=== PATIENT | female | born 1985 | race Caucasian/White ===

== ENCOUNTER 2020-09-16 08:47 | Outpatient (REF) | payer BC, SELFPAY ==
[2020-09-16 11:43] LABS: Anion Gap 12 (12-20); Bilirubin Direct 0.4 mg/dL (0.0-0.5); Blood Urea Nitrogen 13 mg/dL (9-16); Calcium 9.5 mg/dL (8.4-10.2); Carbon Dioxide 28 mmol/L (22-29); Chloride 102 mmol/L (96-108); Estimated Glomerular Filt Rate > 60; Glucose Fasting 94 mg/dL (60-99); Potassium 4.4 mmol/l (3.3-5.1); Sodium 138 mmol/L (135-145)
[2020-09-16 12:08] LABS: TSH reflex Free T4 0.01 mIU/mL (0.32-4.0)
[2020-09-16 12:45] LABS: Free T4 (Free Thyroxine) 1.35 ng/dL (0.71-1.85)
== END 2020-09-16 08:48 | disposition home or self-care (01) ==
LOC: HO.HMGCLDS 08:47
PROVIDERS: PCP Nurse Practitioner Family; Visit Provider Nurse Practitioner Family
DX: Z00.00 Encounter for general adult medical examination without abnormal findings (principal); R17 Unspecified jaundice; R79.89 Other specified abnormal findings of blood chemistry
CPT/HCPCS: 80048; 82248; 84439; 84443

== ENCOUNTER 2020-09-18 10:13 | Outpatient (REF) | payer BC, SELFPAY ==
[2020-09-24 18:17] LABS: HPV mRNA E6/E7 rflx Not Detected (Not Detected)
== END 2020-09-18 10:14 | disposition home or self-care (01) ==
LOC: HO.LAB 10:13
PROVIDERS: Visit Provider Advanced Practice Midwife
DX: Z01.419 Encounter for gynecological examination (general) (routine) without abnormal findings (principal)
CPT/HCPCS: 87624; 87625; 88142

== ENCOUNTER 2020-09-24 12:09 | Outpatient (REF) | payer BC, SELFPAY ==
[2020-09-24 16:01] LABS: TSH reflex Free T4 < 0.01 mIU/mL (0.32-4.0)
[2020-09-24 17:35] LABS: Free T4 (Free Thyroxine) 1.24 ng/dL (0.71-1.85)
== END 2020-09-24 12:10 | disposition home or self-care (01) ==
LOC: HO.HMGCLDS 12:09
PROVIDERS: PCP Nurse Practitioner Family; Visit Provider Nurse Practitioner Family
DX: R79.89 Other specified abnormal findings of blood chemistry (principal)
CPT/HCPCS: 36415; 83520; 84439; 84443; 84481

== ENCOUNTER 2020-10-02 10:36 | Outpatient (REF) | payer BC, SELFPAY ==
--- NOTE | 2020-10-02 10:39 | US_ITS ---
EXAMINATION: US THYROID CLINICAL INFORMATION: Thyrotoxicosis. COMPARISON: None TECHNIQUE: Linear transducer natarajan-scale and color Doppler examination with attention to the region of the thyroid. FINDINGS: SIZE: Measurements of the thyroid lobes and nodules are given in sagittal, anteroposterior and transverse dimensions respectively. Right Thyroid Lobe: 5.6 x 1.5 x 1.6 cm, volume 7.0 mL. Parenchyma: The gland echotexture is heterogeneous. Thyroid vascularity is increased. Left Thyroid Lobe: 4.8 x 1.1 x 1.4 cm, volume 3.9 mL. Parenchyma: The gland echotexture is heterogeneous. Thyroid vascularity is increased. Isthmus: 0.3 cm in maximum AP dimension. RIGHT THYROID LOBE: There is 1 nodule seen. 1. Location: Superior/Lateral. Size: 0.7 x 0.6 x 0.6 cm. Nodule characteristics: Complex hypoechoic smooth margined without calcification and some peripheral internodular flow. ISTHMUS: No nodules. LEFT THYROID LOBE: There are 2 nodules seen. 1. Location: Superior/middle. Size: 0.5 x 0.3 x 0.4 cm. Nodule characteristics: Heterogeneous smooth margined without calcification but with internodular flow. 2. Location: Inferior. Size: 0.5 x 0.4 x 0.4 cm. Nodule characteristics: Heterogeneous smooth margin without calcification but with internodular flow. NODES: Right lymph node measuring 1.1 x 2.4 x 0.3 cm.. US/US thyroid IMPRESSION: Small bilateral subcentimeter thyroid nodules. No suspicious nodules or lymphadenopathy Consider routine follow-up to evaluate for stability. Various management parameters for solitary thyroid nodules are in the literature. According to the [place] [employer], recommendations for thyroid nodules are as follows: Benign: Purely solid nodules (no cystic component). Estimated risk of malignancy < 1%. Recommendation: No biopsy or ultrasound follow up required. Very low suspicion: Spongiform or partially cystic nodules without any of the sonographic features described in low, intermediate or high suspicions patterns. Estimated risk of malignancy < 3%. Recommendation: Consider FNA at > 2 cm. Observation without FNA is also a reasonable option. Recommend repeat ultrasound in 24 months for nodules measuring greater than 1 cm. Nodule measuring less than 1 cm do not require ultrasound follow up. Low suspicion: Isoechoic or hyperechoic solid nodule, or partially cystic nodule with eccentric solid areas, without microcalcification, irregular margin or extrathyroidal extension, or taller than wide shape. Estimated risk of malignancy 5-10%. Recommendation: FNA at > 1.5 cm. Recommend repeat ultrasound in 12-24 months for nodules measuring less than 1.5 cm. Intermediate suspicion: Hypoechoic solid nodule with smooth margins without microcalcification, extrathyroidal extension, or taller than wide shape. Estimated risk of malignancy 10-20%. Recommendation: FNA at > 1 cm. Recommend repeat ultrasound in 12-24 months for nodules measuring less than 1 cm. High suspicion: Solid hypoechoic nodule or solid hypoechoic component of a partially cystic nodule with one or more of the following features: irregular margins (infiltrative, microlobulated), microcalcifications, taller than wide shape, rim calcifications with small extrusive soft tissue component, evidence of extrathyroidal extension. Estimated risk of malignancy > 70-90%. Recommendation: FNA at > 1 cm. Recommend repeat ultrasound in 6-12 months for nodules measuring less than 1 cm. .
== END 2020-10-02 10:37 | disposition home or self-care (01) ==
LOC: HO.HMGCX 10:36
PROVIDERS: PCP Nurse Practitioner Family; Visit Provider Nurse Practitioner Family
DX: R79.89 Other specified abnormal findings of blood chemistry (principal); E05.90 Thyrotoxicosis, unspecified without thyrotoxic crisis or storm
CPT/HCPCS: 76536

== ENCOUNTER → 2020-11-12 07:32 | Outpatient (BNVA) | payer BC, SELFPAY | PROVIDERS: PCP Nurse Practitioner Family; Referring Provider Nurse Practitioner Family; Visit Provider Internal Medicine | DX: Z76.89 Persons encountering health services in other specified circumstances (principal) ==

== ENCOUNTER 2020-11-12 10:50 | Outpatient (REF) | payer BC, SELFPAY ==
[2020-11-12 14:06] LABS: MANUAL DIFF FLAG NO
[2020-11-12 14:16] LABS: Basophils Absolute Auto 0.1 X10*3/uL (0.0-0.2); Basophils Percent Auto 1.4 % (0-2); Eosinophils Absolute Auto 0.1 X10*3/uL (0.0-0.4); Eosinophils Percent Auto 1.4 % (0-4); Hematocrit 40.3 % (37-47); Hemoglobin 13.5 g/dl (12.0-16.0); Imm Gran Abs Auto 0.01 X10*3/uL (0.00-0.03); Imm Gran Pct Auto 0.2 % (0.0-0.4); Lymphocytes Absolute Auto 1.5 X10*3/uL (1.2-4.9); Lymphocytes Percent Auto 34.8 % (20-40); Mean Corpuscular HGB Conc 33.5 g/dl (31.0-35.0); Mean Corpuscular Hemoglobin 29.6 pg (27.0-33.0); Mean Corpuscular Volume 88.4 fL (80-98); Mean Platelet Volume 9.3 fL (9.4-12.3); Monocytes Absolute Auto 0.4 X10*3/uL (0.1-1.2); Monocytes Percent Auto 8.6 % (2-11); Neutrophils Absolute Auto 2.4 X10*3/uL (2.0-8.3); Neutrophils Percent Auto 53.6 % (45-73); Platelet Count 275 X10*3/uL (160-400); Red Blood Count 4.56 X10*6/uL (4.20-5.50); Red Cell Distribution Width 12.1 % (11.0-16.0); White Blood Count 4.4 X10*3/uL (4.8-10.8)
[2020-11-12 14:45] LABS: Alanine Aminotransferase 20 U/L (0-31); Albumin Level 4.2 g/dL (3.5-5.0); Alkaline Phosphatase 52 U/L (39-117); Aspartate Amino Transferase 17 U/L (5-31); Bilirubin Direct 0.4 mg/dL (0.0-0.5); Bilirubin Total 1.1 mg/dL (0.0-1.0); Calcium 8.6 mg/dL (8.4-10.2); Estimated Glomerular Filt Rate > 60; Total Protein 6.6 g/dL (6.5-8.0)
[2020-11-12 14:55] LABS: Free T4 (Free Thyroxine) 1.11 ng/dL (0.71-1.85); Thyroid Stimulating Hormone 0.03 uIU/mL (0.32-4.0); Vitamin D 25-OH Total 23.9 ng/mL (>30)
[2020-11-13 12:53] LABS: Triiodothyronine T3 Total 102 ng/dL (76-181)
[2020-11-13 17:57] LABS: Thyroglobulin Antibodies <1 IU/mL (< or = 1); Thyroid Peroxidase Antibodies 10 IU/mL (<9)
[2020-11-13 19:08] LABS: PTHI 56 pg/mL (14-64)
[2020-11-17 15:47] LABS: Thyroid Stimulating Immunoglob 360 % baseline (<140)
[2020-11-19 22:03] LABS: Thyrotropin Receptor Antibody 2.37 IU/L (<=2.00)
[2020-11-20 00:23] LABS: FT4 by Equilib. Dialysis 1.5 ng/dL (0.9-2.2)
== END 2020-11-12 10:51 | disposition home or self-care (01) ==
LOC: HO.HMGCLDS 10:50
PROVIDERS: PCP Nurse Practitioner Family; Visit Provider Internal Medicine
DX: E05.90 Thyrotoxicosis, unspecified without thyrotoxic crisis or storm (principal); E55.9 Vitamin D deficiency, unspecified; E04.2 Nontoxic multinodular goiter; R79.89 Other specified abnormal findings of blood chemistry
CPT/HCPCS: 36415; 80076; 82306; 82310; 82565; 83520; 83970; 84439; 84443; 84445; 84480; 85025; 86376; 86800

== ENCOUNTER → 2020-12-09 14:32 | Outpatient (BNVA) | payer BC, SELFPAY | PROVIDERS: PCP Nurse Practitioner Family; Visit Provider Advanced Practice Midwife ==

== ENCOUNTER 2020-12-10 14:32 | Outpatient (REF) | payer BC, SELFPAY ==
--- NOTE | 2020-12-10 14:42 | US_ITS ---
EXAMINATION: ULTRASOUND RIGHT LOWER QUADRANT CLINICAL INFORMATION: Right lower quadrant pain COMPARISON: None. TECHNIQUE: Grayscale ultrasound, color Doppler performed right lower quadrant.: Doppler exam used. FINDINGS: The appendix is not seen. Appendicitis cannot be excluded. No focal fluid collection. No inflammatory change. No lymphadenopathy in the right Lower quadrant. The right ovary is normal measuring 3.6 x 2.6 x 3.5 cm. US/US appendix IMPRESSION: The appendix is not identified. Appendicitis cannot be excluded. No focal inflammatory change.
--- NOTE | 2020-12-10 14:42 | US_ITS ---
EXAMINATION: ULTRASOUND PELVIC, COMPLETE CLINICAL INFORMATION: Right lower quadrant pain COMPARISON: None. TECHNIQUE: Transvaginal: Used to better visualize pelvic structures Transabdominal: Not adequate for visualization Spectral Doppler and color Doppler exam was utilized. LMP: 12/04/2020 FINDINGS: UTERUS: There are a few nonspecific small bright echogenic foci associated with the endometrial stripe but these do not demonstrate posterior acoustic shadowing. Endometrial stripe is nearly isoechoic. Endometrial thickness is 1 cm. No fluid collections in the endometrial cavity. Uterus measures 10.4 x 3.9 x 7.5 cm. There is nabothian cysts at the cervix. ADNEXA: Ovarian vascularity:Doppler demonstrates both arterial and venous vascular flow in the right and left ovary. No evidence of ovarian torsion. Right Ovary: Multiple small follicles. The right ovary measures 3.6 x 2.2 x 4 cm. Volume 16.7 mL. Left Ovary: Multiple small follicles. The left ovary measures 3.3 x 2.1 x 2.7 cm. Volume 9.9 mL Cul-de-sac: No Fluid US/US pelvic complete IMPRESSION: Normal ultrasound of pelvis.
--- NOTE | 2020-12-10 14:42 | US_ITS ---
EXAMINATION: ULTRASOUND PELVIC, COMPLETE CLINICAL INFORMATION: Right lower quadrant pain COMPARISON: None. TECHNIQUE: Transvaginal: Used to better visualize pelvic structures Transabdominal: Not adequate for visualization Spectral Doppler and color Doppler exam was utilized. LMP: 12/04/2020 FINDINGS: UTERUS: There are a few nonspecific small bright echogenic foci associated with the endometrial stripe but these do not demonstrate posterior acoustic shadowing. Endometrial stripe is nearly isoechoic. Endometrial thickness is 1 cm. No fluid collections in the endometrial cavity. Uterus measures 10.4 x 3.9 x 7.5 cm. There is nabothian cysts at the cervix. ADNEXA: Ovarian vascularity:Doppler demonstrates both arterial and venous vascular flow in the right and left ovary. No evidence of ovarian torsion. Right Ovary: Multiple small follicles. The right ovary measures 3.6 x 2.2 x 4 cm. Volume 16.7 mL. Left Ovary: Multiple small follicles. The left ovary measures 3.3 x 2.1 x 2.7 cm. Volume 9.9 mL Cul-de-sac: No Fluid US/US transvaginal IMPRESSION: Normal ultrasound of pelvis.
[2020-12-10 16:43] LABS: MANUAL DIFF FLAG NO
[2020-12-10 16:48] LABS: Basophils Absolute Auto 0.1 X10*3/uL (0.0-0.2); Eosinophils Absolute Auto 0.1 X10*3/uL (0.0-0.4); Eosinophils Percent Auto 1.6 % (0-4); Hematocrit 41.4 % (37-47); Hemoglobin 13.8 g/dl (12.0-16.0); Imm Gran Abs Auto 0.01 X10*3/uL (0.00-0.03); Imm Gran Pct Auto 0.2 % (0.0-0.4); Lymphocytes Absolute Auto 2.2 X10*3/uL (1.2-4.9); Mean Corpuscular HGB Conc 33.3 g/dl (31.0-35.0); Mean Corpuscular Hemoglobin 29.9 pg (27.0-33.0); Mean Corpuscular Volume 89.8 fL (80-98); Mean Platelet Volume 9.2 fL (9.4-12.3); Monocytes Absolute Auto 0.3 X10*3/uL (0.1-1.2); Monocytes Percent Auto 5.5 % (2-11); Neutrophils Absolute Auto 3.5 X10*3/uL (2.0-8.3); Neutrophils Percent Auto 56.7 % (45-73); Platelet Count 331 X10*3/uL (160-400); Red Blood Count 4.61 X10*6/uL (4.20-5.50); Red Cell Distribution Width 12.4 % (11.0-16.0); White Blood Count 6.1 X10*3/uL (4.8-10.8)
[2020-12-10 16:55] LABS: Albumin Level 4.4 g/dL (3.5-5.0)
[2020-12-10 17:11] LABS: HCG Quantitative < 2 mIU/mL
== END 2020-12-10 14:33 | disposition home or self-care (01) ==
LOC: HO.HMGCX 14:32
PROVIDERS: Internal Medicine; PCP Nurse Practitioner Family; Visit Provider Advanced Practice Midwife
DX: Z00.00 Encounter for general adult medical examination without abnormal findings (principal); R10.31 Right lower quadrant pain; R10.2 Pelvic and perineal pain; E55.9 Vitamin D deficiency, unspecified
CPT/HCPCS: 36415; 76705; 76830; 76856; 82040; 84702; 85025

== ENCOUNTER 2020-12-11 13:48 | Emergency (ER) | payer BC, SELFPAY ==
--- NOTE | 2020-12-11 14:12 | ED_ITS ---
HPI - Abdominal Pain General Chief Complaint: Abdominal Pain Stated Complaint: pelvic pain Time Seen by Provider: 12/11/20 14:04 Source: patient Mode of arrival: ambulatory Limitations: no limitations History of Present Illness HPI narrative: 35 y/o female with history of migraines, multi-nodular thyroid w/ reported hypo and hyperthyroidism presents to the ER with intermittent sharp RLQ pain for the last 3 days. She has been seen by her [employer] INSPECTOR and PCP this week. She has had a normal pelvic/ovarian U/S and an appendix U/S that could not identify the appendix but no local inflammatory changes were noted. LMP 12/04. Qunt HCG was <2. No vaginal discharge, no vaginal bleeding. No dyspareunia. She also denies urinary symptoms. MD elicited complaint: abdominal pain Pertinent past history: none Onset (ago): day(s) (3) Pain Consistency: intermittent and now resolved Location: RLQ Severity: severe Quality: sharp Radiation: none Migration to: no migration Exacerbating factors: nothing Relieving factors: nothing Associated symptoms: nausea Related Data Date of Last Menstrual Period: 12/04/20 Patient : No Home Medications Medication Instructions Recorded Confirmed cholecalciferol (vitamin D3) 50 50 mcg PO DAILY 12/10/20 12/10/20 mcg (2,000 unit) capsule Allergies Allergy/AdvReac Type Severity Reaction Status Date / Time No Known Allergies Allergy Unknown Verified 12/11/20 14:25 Review of Systems Review of Systems Constitutional: No Fever, No Chills ENT/Mouth: No sore throat Cardiovascular: No Chest Pain, No SOB Respiratory: No Cough, No Sputum Gastrointestinal: N+Nausea, No Vomiting, No Diarrhea, + abdominal Pain, No Hematochezia, No Melena Genitourinary: No Dysuria, No Urinary Frequency, No Hematuria Musculoskeletal: No joint pain, No Myalgias Skin: No Skin Lesions, No rash Neuro: No Weakness, No Numbness, No Dizziness, No Headache Psych: No Anxiety/Panic, No Depression Heme/Lymph: No Bruising, No Lymphadenopathy Endocrine: No Polyuria, No Polydipsia Physical Exam Vital Signs: Vital Signs: Last Vital Signs Temp 98.4 F 12/11/20 14: Pulse 89 12/11/20 14:22 Resp 16 12/11/20 14:22 BP 113/68 12/11/20 14:22 Pulse Ox 98 12/11/20 14:22 Body Mass Index 25.8 Appearance: Alert. Oriented X3. No acute distress. Eyes: Pupils equal, round and reactive to light. ENT: Pharynx normal. Neck: Normal inspection. Neck supple. CVS: Normal heart rate and rhythm. Pulses normal. Respiratory: No respiratory distress. Breath sounds normal. Abdomen: Soft with mild RLQ tenderness to deep palpation. No rebound or guarding. +BS x4 Skin: Skin warm and dry. Normal skin color. Normal skin turgor. No rashes. Extremities: No lower extremity edema. Neuro: Oriented X 3. No motor deficit. No sensory deficit. Course Course Course Narrative: 35 y/o female presenting with intermittent RLQ pain for the last 3 days. No pain at current and exam is unrevealing. Had recent negative pelvic U/S and appendix U/S yesterday. Will proceed with abd/pelvis CT scan and blood work for further evaluation. Reevaluation(s) Reevaluation #1: Lab workup and CT scan are unremarkable. She continues to be painfree in the ER. Etiology of her pain is unclear. Deferring pelvic exam per patient request (she had normal PAP in Oct per her report)- patient has no vaginal discharge and is , no STI risk. She is stable for discharge and has been counseled. MDM - Abdominal Pain Differential Diagnosis Differential diagnosis: Likely abdominal pain, acute appendicitis, constipation, diverticulitis, mesenteric ischemia, ovarian cyst and renal colic Lab Data Result diagrams: 12/11/20 14:32 12/11/20 14:32 Labs: Lab Results 12/11/20 12/11/20 12/11/20 Range/Units 14:32 14:32 14:32 WBC 6.5 (4.8-10.8) X10*3/uL RBC 4.48 (4.20-5.50) X10*6/uL Hgb 13.5 (12.0-16.0) g/dl Hct 39.4 (37-47) % MCV 87.9 (80-98) fL MCH 30.1 (27.0-33.0) pg MCHC 34.3 (31.0-35.0) g/dl RDW 12.1 (11.0-16.0) % Plt Count 298 (160-400) X10*3/uL MPV 8.6 L (9.4-12.3) fL Immature Gran % (Auto) 0.3 (0.0-0.4) % Neut % (Auto) 61.6 (45-73) % Lymph % (Auto) 30.6 (20-40) % [place] % (Auto) 5.1 (2-11) % Eos % (Auto) 1.2 (0-4) % Baso % (Auto) 1.2 (0-2) % Lymph # (Auto) 2.0 (1.2-4.9) X10*3/uL Sterling # (Auto) 0.3 (0.1-1.2) X10*3/uL Eos # (Auto) 0.1 (0.0-0.4) X10*3/uL Baso # (Auto) 0.1 (0.0-0.2) X10*3/uL Abs Immat Gran (auto) 0.02 (0.00-0.03) X10*3/uL Absolute Neuts (auto) 4.0 (2.0-8.3) X10*3/uL Absolute Nucleated RBC 0.000 (0.0-0.012) X10*3/uL Nucleated RBC % (auto) 0.0 (0.0-0.2) /100WBC Hold Blue Top SEE NOTE Sodium 138 (135-145) mmol/L Potassium 3.5 D (3.3-5.1) mmol/l Chloride 106 (96-108) mmol/L Carbon Dioxide 26 (22-29) mmol/L Anion Gap 10 L (12-20) BUN 12 (9-16) mg/dL Creatinine 0.89 (0.5-1.4) mg/dL Estim Creat Clear Calc 91.6 Estimated GFR > 60 Random Glucose 95 (60-115) mg/dL Calcium 9.0 (8.4-10.2) mg/dL Total Bilirubin 0.7 (0.0-1.0) mg/dL AST 17 (5-31) U/L ALT 23 (0-31) U/L Alkaline Phosphatase 51 (39-117) U/L Total Protein 6.6 (6.5-8.0) g/dL Albumin 4.2 (3.5-5.0) g/dL Lipase 43 (8-78) U/L Urine Color Urine Appearance Urine pH (5.0-8.0) Ur Specific [place] (1.005-1.025) Urine Protein (NEG-TRACE) MG/DL Urine Glucose (UA) (NEG) MG/DL Urine Ketones (NEG) MG/DL Urine Blood (NEG) Urine Nitrite (NEG) Ur Leukocyte Esterase (NEG) Urine Test (NEGATIVE) 12/11/20 Range/Units 14:32 WBC (4.8-10.8) X10*3/uL RBC (4.20-5.50) X10*6/uL Hgb (12.0-16.0) g/dl Hct (37-47) % MCV (80-98) fL MCH (27.0-33.0) pg MCHC (31.0-35.0) g/dl RDW (11.0-16.0) % Plt Count (160-400) X10*3/uL MPV (9.4-12.3) fL Immature Gran % (Auto) (0.0-0.4) % Neut % (Auto) (45-73) % Lymph % (Auto) (20-40) % Sterling % (Auto) (2-11) % Eos % (Auto) (0-4) % Baso % (Auto) (0-2) % Lymph # (Auto) (1.2-4.9) X10*3/uL Sterling # (Auto) (0.1-1.2) X10*3/uL Eos # (Auto) (0.0-0.4) X10*3/uL Baso # (Auto) (0.0-0.2) X10*3/uL Abs Immat Gran (auto) (0.00-0.03) X10*3/uL Absolute Neuts (auto) (2.0-8.3) X10*3/uL Absolute Nucleated RBC (0.0-0.012) X10*3/uL Nucleated RBC % (auto) (0.0-0.2) /100WBC Hold Blue Top Sodium (135-145) mmol/L Potassium (3.3-5.1) mmol/l Chloride (96-108) mmol/L Carbon Dioxide (22-29) mmol/L Anion Gap (12-20) BUN (9-16) mg/dL Creatinine (0.5-1.4) mg/dL Estim Creat Clear Calc Estimated GFR Random Glucose (60-115) mg/dL Calcium (8.4-10.2) mg/dL Total Bilirubin (0.0-1.0) mg/dL AST (5-31) U/L ALT (0-31) U/L Alkaline Phosphatase (39-117) U/L Total Protein (6.5-8.0) g/dL Albumin (3.5-5.0) g/dL Lipase (8-78) U/L Urine Color YELLOW Urine Appearance CLEAR Urine pH 5.5 (5.0-8.0) Ur Specific [place] >= 1.030 H (1.005-1.025) Urine Protein NEG (NEG-TRACE) MG/DL Urine Glucose (UA) NEG (NEG) MG/DL Urine Ketones NEG (NEG) MG/DL Urine Blood NEG (NEG) Urine Nitrite NEG (NEG) Ur Leukocyte Esterase NEG (NEG) Urine Test NEGATIVE (NEGATIVE) Critical Care Time Critical Care Time Critical Care Time: No Discharge Plan Discharge Clinical Impression: Abdominal pain Patient Disposition: Home, Self-Care Instructions: Abdominal Pain (ED) Additional Instructions: Your lab workup today was unremarkable. Your CT scan showed no abnormalities. The cause your your pain is unclear. Recommend keeping a food diary and monitoring when then pain occurs. Encourage you to follow up with your [employer] INSPECTOR and Primary Care Doctor. Prescriptions: No Action cholecalciferol (vitamin D3) 50 mcg (2,000 unit) capsule 50 mcg PO DAILY RF: 0 Stand Alone Forms: Work/School Release FOR[facility]LY [facility] Past Medical History Medical History Hyperthyroidism Hypothyroidism Migraine with aura Migraines Multinodular thyroid Vitamin D deficiency Surgical History Hx of cholecystectomy Date of Last Menstrual Period: 12/04/20 Family History Family History Father CVD (cardiovascular disease) Mother Diabetes mellitus Sister No problems noted. Sister No problems noted. Son No problems noted. Daughter No problems noted. Maternal Grandfather Thyroid disease Social History Social History Alcohol intake: current Alcohol intake frequency: holidays/special occasions only Smoking Status: Current every day smoker Advance Directives: No Advance Directives Information Provided: No Sexual orientation: Straight/Heterosexual Gender identity: female
--- NOTE | 2020-12-11 14:13 | CT_ITS ---
EXAMINATION: CT ABDOMEN AND PELVIS WITH CONTRAST CLINICAL INFORMATION: Right lower quadrant pain COMPARISON: Ultrasound pelvis 12/10/2020 TECHNIQUE: Multidetector volumetric images were obtained from the superior aspect of the liver through the pubic symphysis following administration 85 mL of Omnipaque 350 intravenous contrast. Sagittal and coronal reformatted images were obtained on the technologist's workstation. Oral contrast: No This CT examination was performed using dose optimization techniques as appropriate, variously including the following: *Automated exposure control *Adjustment of mA and/or kV according to patient size (this includes techniques or standardized protocols for targeted exams where dose is matched to indication/reason for exam; i.e. extremities or head) *Use of iterative reconstruction technique DLP: 558 mGy-cm FINDINGS: LUNG BASES: The visualized lung bases are unremarkable. LIVER, GALLBLADDER, AND BILIARY TREE: The liver is normal in size and smooth in contour. There is a solitary subcapsular low-attenuation nodule inferior lateral right lobe segment 6 measuring only 0.5 mm, likely a cyst. The remainder of the liver parenchyma is homogeneous. There is no intrahepatic biliary ductal dilatation. The gallbladder is not seen with certainty. No clips demonstrated renal fossa. Common hepatic duct and common bile duct are unremarkable. PANCREAS: Unremarkable. SPLEEN: Unremarkable. ADRENAL GLANDS: Unremarkable. KIDNEYS AND URETERS: The kidneys are normal in size, shape, and attenuation. No hydronephrosis, hydroureter, or calculi seen. No perinephric stranding. BLADDER: Unremarkable. GASTROINTESTINAL TRACT: There is no bowel obstruction or inflammatory changes in the bowel or mesentery. There is moderate stool throughout the colon no gaseous dilatation of bowel. The appendix is normal. There is no ascites or fluid collection. No pneumatosis or free air. ABDOMINAL WALL: No significant hernia is appreciated. LYMPH NODES: No lymphadenopathy. VASCULAR: Unremarkable. PELVIC VISCERA: No adnexal mass or pelvic ascites. OSSEOUS STRUCTURES: Unremarkable. CT/CT abdomen pelvis w con IMPRESSION: 1. No bowel obstruction or inflammatory changes. Normal appendix. 2. Gallbladder not visualized. No biliary ductal dilatation. 3. No hydronephrosis, hydroureter, or perinephric stranding. 4. No adnexal mass or pelvic ascites.
[2020-12-11 14:22] VITALS: BP 113/68; PULSE 89; RESP 16; TEMP 36.9; O2SAT 98; BMI 25.8
[2020-12-11 14:37] LABS: MANUAL DIFF FLAG NO
[2020-12-11 14:41] LABS: Basophils Absolute Auto 0.1 X10*3/uL (0.0-0.2); Basophils Percent Auto 1.2 % (0-2); Eosinophils Absolute Auto 0.1 X10*3/uL (0.0-0.4); Eosinophils Percent Auto 1.2 % (0-4); Hematocrit 39.4 % (37-47); Hemoglobin 13.5 g/dl (12.0-16.0); Imm Gran Abs Auto 0.02 X10*3/uL (0.00-0.03); Imm Gran Pct Auto 0.3 % (0.0-0.4); Lymphocytes Percent Auto 30.6 % (20-40); Mean Corpuscular HGB Conc 34.3 g/dl (31.0-35.0); Mean Corpuscular Hemoglobin 30.1 pg (27.0-33.0); Mean Corpuscular Volume 87.9 fL (80-98); Mean Platelet Volume 8.6 fL (9.4-12.3); Monocytes Absolute Auto 0.3 X10*3/uL (0.1-1.2); Monocytes Percent Auto 5.1 % (2-11); Neutrophils Percent Auto 61.6 % (45-73); Platelet Count 298 X10*3/uL (160-400); Red Blood Count 4.48 X10*6/uL (4.20-5.50); Red Cell Distribution Width 12.1 % (11.0-16.0); White Blood Count 6.5 X10*3/uL (4.8-10.8)
[2020-12-11 14:42] LABS: Glucose Urine UA NEG (NEG); Leukocyte Esterase Urine NEG (NEG); Nitrite Urine NEG (NEG); PH 5.5 (5.0-8.0); Specific Gravity - Urine >= 1.030 (1.005-1.025); Urine Blood NEG (NEG); Urine Ketones NEG (NEG); Urine Protein NEG (NEG-TRACE)
[2020-12-11 14:43] LABS: Appearance Urine CLEAR; Color Urine YELLOW
[2020-12-11 14:44] LABS: UPreg QC Valid YES; Urine Pregnancy NEGATIVE (NEGATIVE)
[2020-12-11 15:03] LABS: Alanine Aminotransferase 23 U/L (0-31); Albumin Level 4.2 g/dL (3.5-5.0); Alkaline Phosphatase 51 U/L (39-117); Anion Gap 10 (12-20); Aspartate Amino Transferase 17 U/L (5-31); Bilirubin Total 0.7 mg/dL (0.0-1.0); Blood Urea Nitrogen 12 mg/dL (9-16); Carbon Dioxide 26 mmol/L (22-29); Chloride 106 mmol/L (96-108); Creatinine Clr Calc Pharmacy 91.6; Estimated Glomerular Filt Rate > 60; Glucose Random 95 mg/dL (60-115); Lipase 43 U/L (8-78); Potassium 3.5 mmol/l (3.3-5.1); Sodium 138 mmol/L (135-145); Total Protein 6.6 g/dL (6.5-8.0)
--- NOTE | 2020-12-11 15:15 | PC.NURSE ---
PT TO CT SCAN
[2020-12-11] MEDS: iohexoL 350 MG/ML 100 ML INFUS..BTL IV (15:31)
[2020-12-11 16:00] VITALS: BP 98/51; PULSE 84; RESP 16; TEMP 36.9; O2SAT 99
== END 2020-12-11 16:37 | disposition home or self-care (01) ==
PROVIDERS: Physician Assistant; Emergency Provider Emergency Medicine Emergency Medical Services; PCP Nurse Practitioner Family
DX: R10.31 Right lower quadrant pain (principal); Z79.899 Other long term (current) drug therapy
CPT/HCPCS: 36415; 74177; 80053; 81003; 81025; 83690; 85025; 99284; Q9967

== ENCOUNTER 2020-12-23 13:10 | Outpatient (REF) | payer BC, SELFPAY ==
[2020-12-24 08:22] LABS: BV Int Neg Control Negative (Negative); BV Int Pos Control Positive (Positive)
[2020-12-24 09:57] LABS: C. trachomatis RNA TMA NOT DETECTED (NOT DETECTED); N. gonorrhoeae RNA TMA NOT DETECTED (NOT DETECTED)
== END 2020-12-23 13:11 | disposition home or self-care (01) ==
LOC: HO.LAB 13:10
PROVIDERS: PCP Nurse Practitioner Family; Visit Provider Advanced Practice Midwife
DX: R10.2 Pelvic and perineal pain (principal); Z20.2 Contact with and (suspected) exposure to infections with a predominantly sexual mode of transmission
CPT/HCPCS: 36415; 87480; 87491; 87510; 87591; 87660

== ENCOUNTER → 2020-12-31 09:35 | Outpatient (BNVA) | payer BC, SELFPAY | PROVIDERS: PCP Nurse Practitioner Family; Visit Provider Internal Medicine ==

== ENCOUNTER → 2021-01-21 09:29 | Outpatient (REF) | payer BC, SELFPAY ==
--- NOTE | ~2021-01-21 | NM_ITS ---
EXAMINATION: NM THYROID UPTAKE AND SCAN CLINICAL INFORMATION: Thyrotoxicosis. COMPARISON: None. TECHNIQUE: Following the oral administration of 283 microcuries of I-123 sodium iodide, thyroid uptake was performed and expressed as a percentage of the administrated dose. Gamma scintillation camera images of the thyroid in the anterior and right and left anterior oblique views were obtained using a pinhole collimator following the administration of 10 mCi Tc-99m pertechnetate. FINDINGS: The uptake is 15.5% at 2 hours and 24.2% at 24 hours. Imaging of the gland shows mildly heterogeneous gland. No significant cold or hot defect. NM/NM thyroid w uptake IMPRESSION: Elevated uptake at 2 hours with normal uptake at 24 hours. The gland showing mildly heterogeneous uptake without significant hot or cold defect. This exam may be consistent with recovering thyroiditis or possibly early Mazin's disease.
== END ==
LOC: HO.NUCMED 09:29
PROVIDERS: Visit Provider Internal Medicine
DX: E05.90 Thyrotoxicosis, unspecified without thyrotoxic crisis or storm (principal); E04.2 Nontoxic multinodular goiter
CPT/HCPCS: 78014; A9512; A9516

== ENCOUNTER → 2021-01-28 10:43 | Outpatient (BNVA) | payer BC, SELFPAY | PROVIDERS: PCP Nurse Practitioner Family; Visit Provider Internal Medicine ==

== ENCOUNTER 2021-02-05 09:34 | Outpatient (REF) | payer BC, SELFPAY ==
[2021-02-05 12:01] LABS: Free T4 (Free Thyroxine) 1.09 ng/dL (0.71-1.85); Thyroid Stimulating Hormone 0.25 uIU/mL (0.32-4.0)
[2021-02-06 02:22] LABS: Triiodothyronine T3 Total 102 ng/dL (76-181)
== END 2021-02-05 09:35 | disposition home or self-care (01) ==
LOC: HO.HMGCLDS 09:34
PROVIDERS: PCP Nurse Practitioner Family; Visit Provider Internal Medicine
DX: E05.90 Thyrotoxicosis, unspecified without thyrotoxic crisis or storm (principal)
CPT/HCPCS: 36415; 84439; 84443; 84480

== ENCOUNTER 2021-02-19 09:25 | Outpatient (REF) | payer BC, SELFPAY ==
[2021-02-19 12:18] LABS: Free T4 (Free Thyroxine) 0.98 ng/dL (0.71-1.85)
[2021-02-20 08:16] LABS: Triiodothyronine T3 Total 73 ng/dL (76-181)
== END 2021-02-19 09:26 | disposition home or self-care (01) ==
LOC: HO.HMGCLDS 09:25
PROVIDERS: PCP Nurse Practitioner Family; Visit Provider Internal Medicine
DX: E05.90 Thyrotoxicosis, unspecified without thyrotoxic crisis or storm (principal)
CPT/HCPCS: 36415; 84439; 84480

== ENCOUNTER → 2021-03-02 07:42 | Outpatient (BNVA) | payer BC, SELFPAY | PROVIDERS: PCP Nurse Practitioner Family; Visit Provider Internal Medicine ==

== ENCOUNTER 2021-03-10 13:31 | Outpatient (REF) | payer BC, SELFPAY ==
--- NOTE | ~2021-03-10 | US_ITS ---
EXAMINATION: US THYROID CLINICAL INFORMATION: Nontoxic multinodular goiter. COMPARISON: Ultrasound soft tissue head/neck thyroid dated 10/02/2020. TECHNIQUE: Linear transducer grayscale and color Doppler examination with attention to the region of the thyroid. FINDINGS: SIZE: Measurements of the thyroid lobes and nodules are given in sagittal, anteroposterior and transverse dimensions respectively. Right Thyroid Lobe: 5.2 x 1.8 x 1.6 cm, volume 7.4 mL. Previously 5.6 x 1.5 x 1.6 cm, volume 7.0 mL. Parenchyma: The gland echotexture is homogeneous. Thyroid vascularity is increased. Left Thyroid Lobe: 5.0 x 1.3 x 1.4 cm, volume 4.5 mL. Previously 4.8 x 1.1 x 1.4 cm, volume 3.9 mL. Parenchyma: The gland echotexture is homogeneous. Thyroid vascularity is increased. Isthmus: 0.3 cm in maximum AP dimension. Previously 0.3 cm. Estimated total number of nodules greater than or equal to 1 cm: 0. Medical Sales Consultant nodules are described as follows: 1. Location: Right superior. Size: 0.6 x 0.5 x 0.6 cm, volume 0.1 mL. Previously: 0.7 x 0.6 x 0.6 cm, volume 0.1 mL. Nodule characteristics: Composition: Cystic(0). Echogenicity: Anechoic (0). Shape: Not taller than wide (0). Margins: Smooth (0). Echogenic Foci: Peripheral calcifications (2). ACR TI-RADS total points: 2 ACR TI-RADS category: 2 Significant change in size (>/= 20% in 2 dimensions and minimal increase of 2 mm or 50% or greater increase in volume): No Change in features: No Change in ACR TI-RADS risk category: n/a 2. Location: Left mid. Size: 0.5 x 0.3 x 0.4 cm, volume 0.03 mL. Previously: 0.5 x 0.3 x 0.4 cm, volume 0.03 mL. Nodule characteristics: Composition: Solid (2). Echogenicity: Hyperechoic (1). Shape: Not taller than wide (0). Margins: Smooth (0). Echogenic Foci: None (0). ACR TI-RADS total points: 3 ACR TI-RADS category: 3 Significant change in size (>/= 20% in 2 dimensions and minimal increase of 2 mm or 50% or greater increase in volume): No Change in features: No Change in ACR TI-RADS risk category: n/a 3. Location: Left inferior. Size: 0.4 x 0.3 x 0.4 cm, volume 0.03 mL. Previously: 0.5 x 0.4 x 0.4 cm, volume 0.04 mL. Nodule characteristics: Composition: Solid (2). Echogenicity: Hyperechoic (1). Shape: Not taller than wide (0). Margins: Smooth (0). Echogenic Foci: None (0). ACR TI-RADS total points: 3 ACR TI-RADS category: 3 Significant change in size (>/= 20% in 2 dimensions and minimal increase of 2 mm or 50% or greater increase in volume): No Change in features: No Change in ACR TI-RADS risk category: n/a NODES: Right-sided level 3 lymph node measuring 0.9 x 0.2 x 0.5 cm. Left-sided level 3 lymph node measuring 1.6 x 0.4 x 0.5 cm. Left-sided level 4 lymph node measuring 0.8 x 0.3 x 0.4 cm. These demonstrate normal architecture without cortical thickening. US/US thyroid IMPRESSION: Homogeneous thyroid parenchyma with slightly increased vascularity. Findings could indicate a minimal infectious or inflammatory process. No thyromegaly. Redemonstration of bilateral thyroid nodules, not significantly changed when compared to the prior examination. The largest nodule is within the superior right thyroid measuring 0.6 cm with ultrasound characteristics consistent with TI-RADS Category 2. Additional nodules as above. ACR TI-RADS RECOMMENDATION REFERENCE: Ultrasound-guided fine-needle aspiration, followup ultrasound, no further follow up. * TR1 (0 point) and TR 2 (2 points): No FNA or follow up * TR3 (3 points): FNA if more than or equal to 2.5 cm in maximum dimension, followup ultrasound in 1, 3 and 5 years if 1.5 to 2.4 cm in maximum dimension. * TR3, TR4 or TR5 nodules that are below the size threshold for follow up receive no follow up.
== END 2021-03-10 13:32 | disposition home or self-care (01) ==
LOC: HO.US 13:31
PROVIDERS: Visit Provider Internal Medicine
DX: E04.2 Nontoxic multinodular goiter (principal)
CPT/HCPCS: 76536

== ENCOUNTER → 2021-04-22 07:25 | Outpatient (BNVA) | payer BC, SELFPAY | PROVIDERS: PCP Nurse Practitioner Family; Visit Provider Internal Medicine ==

== ENCOUNTER 2021-04-27 10:31 | Outpatient (REF) | payer BC, SELFPAY ==
[2021-04-27 12:13] LABS: Thyroid Stimulating Hormone 1.57 uIU/mL (0.32-4.0); Vitamin D 25-OH Total 17.9 ng/mL (>30)
[2021-04-30 11:06] LABS: Triiodothyronine T3 Total 91 ng/dL (76-181)
== END 2021-04-27 10:32 | disposition home or self-care (01) ==
LOC: HO.HMGCLDS 10:31
PROVIDERS: PCP Nurse Practitioner Family; Visit Provider Internal Medicine
DX: E05.90 Thyrotoxicosis, unspecified without thyrotoxic crisis or storm (principal); E04.2 Nontoxic multinodular goiter; E55.9 Vitamin D deficiency, unspecified
CPT/HCPCS: 36415; 82306; 84439; 84443; 84480

== ENCOUNTER → 2021-09-23 09:32 | Outpatient (BNVA) | payer BC, SELFPAY | PROVIDERS: PCP Nurse Practitioner Family; Visit Provider Advanced Practice Midwife ==

== ENCOUNTER 2021-10-06 09:47 | Outpatient (REF) | payer BC, SELFPAY ==
[2021-10-06 12:06] LABS: Appearance Urine HAZY; Color Urine YELLOW; Glucose Urine UA NEG (NEG); Leukocyte Esterase Urine NEG (NEG); Nitrite Urine NEG (NEG); PH 7.5 (5.0-8.0); Specific Gravity - Urine 1.015 (1.005-1.025); Urine Blood NEG (NEG); Urine Ketones NEG (NEG); Urine Protein NEG (NEG-TRACE)
[2021-10-06 12:28] LABS: Alanine Aminotransferase 34 U/L (0-31); Albumin Level 4.1 g/dL (3.5-5.0); Alkaline Phosphatase 48 U/L (39-117); Anion Gap 12 (12-20); Aspartate Amino Transferase 23 U/L (5-31); Bilirubin Total 1.7 mg/dL (0.0-1.0); Blood Urea Nitrogen 6 mg/dL (9-16); Calcium 8.9 mg/dL (8.4-10.2); Carbon Dioxide 23 mmol/L (22-29); Chloride 108 mmol/L (96-108); Cholesterol 164 mg/dL; Estimated Glomerular Filt Rate > 60; Glucose Fasting 91 mg/dL (60-99); HDL Cholesterol 52 mg/dL; LDL Cholesterol Calculated 98 mg/dl; Potassium 4.1 mmol/L (3.3-5.1); Sodium 139 mmol/L (135-145); Total Protein 6.6 g/dL (6.5-8.0); Triglycerides 73 mg/dL
[2021-10-06 12:39] LABS: Free T4 (Free Thyroxine) 1.12 ng/dL (0.71-1.85); Thyroid Stimulating Hormone 0.47 uIU/mL (0.32-4.0); Vitamin D 25-OH Total 22.8 ng/mL (>30)
[2021-10-07 21:32] LABS: Triiodothyronine T3 Total 81 ng/dL (76-181)
== END 2021-10-06 09:48 | disposition home or self-care (01) ==
LOC: HO.HMGCLDS 09:47
PROVIDERS: PCP Nurse Practitioner Family; Visit Provider Internal Medicine
DX: Z00.00 Encounter for general adult medical examination without abnormal findings (principal); E04.2 Nontoxic multinodular goiter; E05.90 Thyrotoxicosis, unspecified without thyrotoxic crisis or storm; E55.9 Vitamin D deficiency, unspecified
CPT/HCPCS: 36415; 80053; 80061; 81003; 82306; 84439; 84443; 84480

== ENCOUNTER → 2021-10-07 10:39 | Outpatient (BNVA) | payer BC, SELFPAY | PROVIDERS: PCP Nurse Practitioner Family; Visit Provider Internal Medicine ==

== ENCOUNTER 2022-09-22 11:24 | Outpatient (REF) | payer BC, SELFPAY ==
--- NOTE | ~2022-09-22 | US_ITS ---
EXAMINATION: US THYROID CLINICAL INFORMATION: Thyrotoxicosis, unspecified without thyrotoxic crisis or storm. COMPARISON: Previous thyroid ultrasounds most recent February 2021 TECHNIQUE: Linear transducer grayscale and color Doppler examination with attention to the region of the thyroid. FINDINGS: SIZE: Measurements of the thyroid lobes and nodules are given in sagittal, anteroposterior and transverse dimensions respectively. Right Thyroid Lobe: 5.0 x 1.8 x 1.7 cm, volume 8.3 mL. Previously 5.2 x 1.8 x 1.6 cm, volume 7.4 mL. Parenchyma: The gland echotexture is homogeneous. Thyroid vascularity is increased. Left Thyroid Lobe: 5.1 x 1.1 x 1.4 cm, volume 4.0 mL. Previously 5.0 x 1.3 x 1.4 cm, volume 4.5 mL. Parenchyma: The gland echotexture is homogeneous. Thyroid vascularity is normal. Isthmus: 0.37 cm in maximum AP dimension. Previously 0.30 cm. Estimated total number of nodules greater than or equal to 1 cm: 0. Credit Compliance Officer nodules are described as follows: 1. Location: Right superior. Size: 0.63 x 0.61 x 0.69 cm, volume 0.14 mL. Previously: 0.60 x 0.50 x 0.60 cm, volume 0.10 mL. Nodule characteristics: Composition: Mixed cystic and solid (1). Echogenicity: Anechoic (0). Shape: Not taller than wide (0). Margins: Smooth (0). Echogenic Foci: Peripheral calcifications (2). ACR TI-RADS total points: 3 Previous: 2 ACR TI-RADS category: 3 Previous: 2 Significant change in size (>/= 20% in 2 dimensions and minimal increase of 2 mm or 50% or greater increase in volume): Change in features: Change in ACR TI-RADS risk category: 2. Location: Left inferior. Size: 0.36 x 0.35 x 0.38 cm, volume 0.02 mL. Previously: 0.40 x 0.30 x 0.40 cm, volume 0.03 mL. Nodule characteristics: Composition: Spongiform (0). Echogenicity: Anechoic (0). Shape: Not taller than wide (0). Margins: Smooth (0). Echogenic Foci: None (0). ACR TI-RADS total points: 0 Previous: 3 ACR TI-RADS category: 1 Previous: 3 Significant change in size (>/= 20% in 2 dimensions and minimal increase of 2 mm or 50% or greater increase in volume): Change in features: Change in ACR TI-RADS risk category: 3. Location: Left mid. Size: 0.42 x 0.43 x 0.46 cm, volume 0.04 mL. Previously: 0.50 x 0.30 x 0.40 cm, volume 0.03 mL. Nodule characteristics: Composition: Mixed cystic and solid (1). Echogenicity: Cannot be determined (1). Shape: Not taller than wide (0). Margins: Smooth (0). Echogenic Foci: None (0). ACR TI-RADS total points: 2 Previous: 3 ACR TI-RADS category: 2 Previous: 3 Significant change in size (>/= 20% in 2 dimensions and minimal increase of 2 mm or 50% or greater increase in volume): Change in features: Change in ACR TI-RADS risk category: NODES: No lymphadenopathy is seen in the tissue surrounding the thyroid gland. US/US thyroid IMPRESSION: Normal size slightly hypervascular thyroid gland. Stable bilateral thyroid nodules. ACR TI-RADS RECOMMENDATION REFERENCE: Ultrasound-guided fine-needle aspiration, followup ultrasound, no further follow up. * TR1 (0 point) and TR 2 (2 points): No FNA or follow up * TR3 (3 points): FNA if more than or equal to 2.5 cm in maximum dimension, followup ultrasound in 1, 3 and 5 years if 1.5 to 2.4 cm in maximum dimension. * TR4 (4-6 points): FNA if more than or equal to 1.5 cm in maximum dimension, followup ultrasound in 1, 2, 3 and 5 years if 1 to 1.4 cm in maximum dimension. * TR5 (more than or equal to 7 points): FNA if more than or equal to 1 cm in maximum dimension, followup ultrasound every year for 5 years if 0.5 to 0.9 cm in maximum dimension. * TR3, TR4 or TR5 nodules that are below the size threshold for follow up receive no follow up.
== END 2022-09-22 11:25 | disposition home or self-care (01) ==
LOC: HO.HMGCX 11:24
PROVIDERS: PCP Nurse Practitioner Family; Visit Provider Internal Medicine
DX: E04.2 Nontoxic multinodular goiter (principal); E05.90 Thyrotoxicosis, unspecified without thyrotoxic crisis or storm
CPT/HCPCS: 76536

== ENCOUNTER 2022-11-09 09:11 | Outpatient (REF) | payer BC, SELFPAY ==
[2022-11-09 11:26] LABS: Appearance Urine Cloudy; Color Urine Yellow; Glucose Urine UA Negative (Negative); Leukocyte Esterase Urine Negative (Negative); Nitrite Urine Negative (Negative); Urine Blood Negative (Negative); Urine Ketones Negative (Negative); Urine Protein Negative (Neg-Trace)
[2022-11-09 11:28] LABS: MANUAL DIFF FLAG NO
[2022-11-09 11:33] LABS: Basophils Absolute Auto 0.1 X10*3/uL (0.0-0.2); Basophils Percent Auto 1.1 % (0-2); Eosinophils Absolute Auto 0.1 X10*3/uL (0.0-0.4); Eosinophils Percent Auto 1.5 % (0-4); Hematocrit 41.1 % (37.0-47.0); Hemoglobin 13.9 g/dl (12.0-16.0); Imm Gran Abs Auto 0.02 X10*3/uL (0.00-0.03); Imm Gran Pct Auto 0.4 % (0.0-0.4); Lymphocytes Absolute Auto 1.5 X10*3/uL (1.2-4.9); Lymphocytes Percent Auto 26.8 % (20-40); Mean Corpuscular HGB Conc 33.8 g/dl (31.0-35.0); Mean Corpuscular Hemoglobin 30.2 pg (27.0-33.0); Mean Corpuscular Volume 89.2 fL (80.0-98.0); Mean Platelet Volume 9.5 fL (9.4-12.3); Monocytes Absolute Auto 0.4 X10*3/uL (0.1-1.2); Monocytes Percent Auto 8.1 % (2-11); Neutrophils Absolute Auto 3.4 x10*3/uL (2.0-8.3); Neutrophils Percent Auto 62.1 % (45-73); Platelet Count 259 X10*3/uL (160-400); Red Blood Count 4.61 X10*6/uL (4.20-5.50); Red Cell Distribution Width 11.7 % (11.0-16.0); White Blood Count 5.4 X10*3/uL (4.8-10.8)
[2022-11-09 13:58] LABS: Free T4 (Free Thyroxine) 0.97 ng/dL (0.71-1.85); Thyroid Stimulating Hormone 0.59 uIU/mL (0.32-4.0); Vitamin D 25-OH Total 17.9 ng/mL (>30)
[2022-11-09 14:06] LABS: Alanine Aminotransferase 31 U/L (0-31); Albumin Level 4.1 g/dL (3.5-5.0); Alkaline Phosphatase 57 U/L (39-117); Anion Gap 10 (12-20); Aspartate Amino Transferase 17 U/L (5-31); Bilirubin Total 1.1 mg/dL (0.0-1.0); Blood Urea Nitrogen 11 mg/dL (9-16); Calcium 8.8 mg/dL (8.4-10.2); Carbon Dioxide 23 mmol/L (22-29); Chloride 112 mmol/L (96-108); Cholesterol 171 mg/dL; Estimated Glomerular Filt Rate > 60; Glucose Fasting 91 mg/dL (60-99); HDL Cholesterol 59 mg/dL; LDL Cholesterol Calculated 101 mg/dl; Potassium 4.3 mmol/L (3.3-5.1); Sodium 141 mmol/L (135-145); TSH reflex Free T4 0.58 uIU/mL (0.32-4.0); Total Protein 6.3 g/dL (6.5-8.0); Triglycerides 56 mg/dL
[2022-11-10 22:09] LABS: Triiodothyronine T3 Total 107 ng/dL (76-181)
== END 2022-11-09 09:12 | disposition home or self-care (01) ==
LOC: HO.HMGCLDS 09:11
PROVIDERS: Absent Provider Internal Medicine; PCP Nurse Practitioner Family; Visit Provider Nurse Practitioner Family
DX: Z00.00 Encounter for general adult medical examination without abnormal findings (principal); E55.9 Vitamin D deficiency, unspecified; E05.90 Thyrotoxicosis, unspecified without thyrotoxic crisis or storm; E04.2 Nontoxic multinodular goiter
CPT/HCPCS: 36415; 80053; 80061; 81003; 82306; 84439; 84443; 84480; 85025

== ENCOUNTER → 2022-11-10 14:43 | Outpatient (BNVA) | payer BC, SELFPAY | PROVIDERS: PCP Nurse Practitioner Family; Visit Provider Internal Medicine | DX: E05.90 Thyrotoxicosis, unspecified without thyrotoxic crisis or storm (principal) ==

== ENCOUNTER 2023-11-02 14:25 | Outpatient (REF) | payer BC, SELFPAY ==
--- NOTE | ~2023-11-02 | US_ITS ---
EXAMINATION: US THYROID CLINICAL INFORMATION: Nontoxic multinodular goiter. COMPARISON: Thyroid ultrasound 09/22/2022 and 03/10/2021. TECHNIQUE: Linear transducer grayscale and color Doppler examination with attention to the region of the thyroid. FINDINGS: SIZE: Measurements of the thyroid lobes and nodules are given in sagittal, anteroposterior and transverse dimensions respectively. Right Thyroid Lobe: 6.0 x 1.3 x 1.8 cm, volume 7.4 mL. Previously 5.0 x 1.8 x 1.7 cm, volume 8.3 mL. Parenchyma: The gland echotexture is heterogeneous. Thyroid vascularity is increased. Left Thyroid Lobe: 5.7 x 1.1 x 1.5 cm, volume 4.9 mL. Previously 5.1 x 1.1 x 1.4 cm, volume 4.0 mL. Parenchyma: The gland echotexture is heterogeneous. Thyroid vascularity is increased. Isthmus: 0.3 cm in maximum AP dimension. Previously 0.4 cm. Estimated total number of nodules greater than or equal to 1 cm: 0. Procurement Technician nodules are described as follows: 1. Location: Right superior. Size: 0.7 x 0.6 x 0.7 cm, volume 0.16 mL. Previously: 0.6 x 0.6 x 0.7 cm, volume 0.14 mL. Nodule characteristics: Composition: Mixed cystic and solid (1). Echogenicity: Isoechoic (1). Shape: Not taller than wide (0). Margins: Smooth (0). Echogenic Foci: Peripheral calcifications (2). ACR TI-RADS total points: 4 ACR TI-RADS category: 4 Significant change in size (>/= 20% in 2 dimensions and minimal increase of 2 mm or 50% or greater increase in volume): No 2. Location: Right inferior isthmus. Size: 0.3 x 0.2 x 0.4 cm, volume 0.01 mL. Previously: New since the previous study. Nodule characteristics: Composition: Spongiform (0). ACR TI-RADS total points: 0 ACR TI-RADS category: 1 3. Location: Left mid lateral. Size: 0.6 x 0.2 x 0.4 cm, volume 0.03 mL. Previously: New since the previous study. Nodule characteristics: Composition: Spongiform (0). Echogenicity: Anechoic (0). Shape: Not taller than wide (0). Margins: Smooth (0). Echogenic Foci: None (0). ACR TI-RADS total points: 0 ACR TI-RADS category: 1 4. Location: Left mid medial. Size: 0.5 x 0.3 x 0.4 cm, volume 0.03 mL. Previously: 0.4 x 0.4 x 0.5 cm, volume 0.04 mL. Nodule characteristics: Composition: Solid/almost completely solid (2). Echogenicity: Isoechoic (1). Shape: Not taller than wide (0). Margins: Smooth (0). Echogenic Foci: None (0). ACR TI-RADS total points: 3 ACR TI-RADS category: 3 Significant change in size (>/= 20% in 2 dimensions and minimal increase of 2 mm or 50% or greater increase in volume): No Change in features: Was previously mixed solid and cystic and is now predominantly solid. 5. Location: Left inferior. Size: 0.4 x 0.3 x 0.3 cm, volume 0.02 mL. Previously: 0.4 x 0.4 x 0.4 cm, volume 0.02 mL. Nodule characteristics: Composition: Solid/almost completely solid (2). Echogenicity: Hypoechoic (2). Shape: Not taller than wide (0). Margins: Smooth (0). Echogenic Foci: None (0). ACR TI-RADS total points: 4 ACR TI-RADS category: 4 Significant change in size (>/= 20% in 2 dimensions and minimal increase of 2 mm or 50% or greater increase in volume): No NODES: No lymphadenopathy is seen in the tissue surrounding the thyroid gland. US/US thyroid IMPRESSION: Subcentimeter thyroid nodules as detailed above which do not meet criteria for follow-up. Mildly heterogeneous thyroid which can be seen in the setting of thyroiditis. ACR TI-RADS RECOMMENDATION REFERENCE: Ultrasound-guided fine-needle aspiration, follow up ultrasound, no further followup. * TR1 (0 point) and TR2 (2 points): No FNA or followup * TR3 (3 points): FNA if more than or equal to 2.5 cm in maximum dimension, follow up ultrasound in 1, 3 and 5 years if 1.5 to 2.4 cm in maximum dimension. * TR4 (4-6 points): FNA if more than or equal to 1.5 cm in maximum dimension, follow up ultrasound in 1, 2, 3 and 5 years if 1 to 1.4 cm in maximum dimension. * TR5 (more than or equal to 7 points): FNA if more than or equal to 1 cm in maximum dimension, follow up ultrasound every year for 5 years if 0.5 to 0.9 cm in maximum dimension. * TR3, TR4 or TR5 nodules that are below the size threshold for follow up receive no followup.
== END 2023-11-02 14:26 | disposition home or self-care (01) ==
LOC: HO.HMGCX 14:25
PROVIDERS: PCP Nurse Practitioner Family; Visit Provider Internal Medicine Endocrinology, Diabetes & Metabolism
DX: E04.2 Nontoxic multinodular goiter (principal)
CPT/HCPCS: 76536

== ENCOUNTER 2023-12-13 12:20 | Outpatient (REF) | payer BC, SELFPAY ==
[2023-12-13 15:10] LABS: Thyroid Stimulating Hormone 0.64 uIU/mL (0.32-4.0)
== END 2023-12-13 12:21 | disposition home or self-care (01) ==
LOC: HO.HMGCLDS 12:20
PROVIDERS: PCP Nurse Practitioner Family; Visit Provider Internal Medicine Endocrinology, Diabetes & Metabolism
DX: E04.2 Nontoxic multinodular goiter (principal)
CPT/HCPCS: 36415; 84439; 84443

== ENCOUNTER 2023-12-14 14:20 | Outpatient (AMB) | payer BC, SELFPAY ==
--- NOTE | 2023-12-14 14:23 | A.OFFVIS_ITS ---
Intake Vital Signs 12/14/23 14:26 Height 5 ft 6 in Weight 191 lb 12.835 oz BMI 31.0 BP 90/64 Blood Pressure Location Lt brachial Position Sitting Pulse 81 Pulse Source Pulse Oximeter Intake Visit Reasons: F/U Grave's Disease-confirmed Intake Note: Patient previously seen by Dr. Bashir on 11/10/22. Patient present today for Grave's disease follow up visit. Contribution Solicitor Required: No Accompanied by: Spouse Allergies No Known Allergies Allergy (Unknown, Verified 12/14/23 14:29) Medication List - Last Reconciled 12/14/23 by Baldev Dias MD citalopram 10 mg PO DAILY HPI HPI Comments History of Present Illness Details 38 YO F with PMHx Autoimmune thyroid disease who is seen in F/U for Hyperthyroidism. The patient last saw Dr. Bashir on 11/10/2022 She had labs completed in April 2020 which revealed hypothyroidism. This was repeated in August 2020 and revealed hyperthyroidism with suppressed TSH. TSH was again checked September 2020 and again revealed a suppressed TSH with FT4 WNL. TPO and TRAB antibodies were both positive. She underwent a thyroid US which revealed multiple thyroid nodules, all subc entimeter. US images were independently reviewed and this revealed a diffusely heterogenous gland consistent with autoimmune thyroid disease. She did have a solitary enlarged cervical lymph node with normal appearance in terms of reniform shape and good fatty hilum. Labs were repeated, which confirmed hyperthyroidism. TSI and TRAB antibodies were positive, with mildly positive TPO antibodies. She then completed a thyroid uptake and scan, which revealed elevated uptake at 2 hours of 15.5%, but WNL at 24 hours at 24.2%. She started on Methimazole 5 mg PO 02/05/2021. She continued this until April 2021, but then ran out and did not request a refill. TSH has since normalized. Denies any dysphagia or hoarseness of voice. Denies sensation of swelling in the neck or difficulty breathing while lying flat. Denies any tenderness in the neck. Denies any palpitations, tremors or frequent bowel movements. Denies any ocular complaints, blurred or double vision. Does complain of hair loss and fatigue. Reports weight gain of 65 lbs this year. Denies confusion. Denies any history of head or neck irradiation. Unsure of any family history of thyroid cancer. Thyroid US: 09/22/2022 Right Thyroid Lobe: 5.0 x 1.8 x 1.7 cm, volume 8.3 mL. Previously 5.2 x 1.8 x 1.6 cm, volume 7.4 mL. Parenchyma: The gland echotexture is homogeneous. Thyroid vascularity is increased. Left Thyroid Lobe: 5.1 x 1.1 x 1.4 cm, volume 4.0 mL. Previously 5.0 x 1.3 x 1.4 cm, volume 4.5 mL. Parenchyma: The gland echotexture is homogeneous. Thyroid vascularity is normal. Isthmus: 0.37 cm in maximum AP dimension. Previously 0.30 cm. Estimated total number of nodules greater than or equal to 1 cm: 0. Utilization Management Manager nodules are described as follows: 1.? Location: Right superior. ?? ? Size: 0.63 x 0.61 x 0.69 cm, volume 0.14 mL. ?? ? Previously: 0.60 x 0.50 x 0.60 cm, volume 0.10 mL. ?? ? Nodule characteristics: ?? ? Composition: Mixed cystic and solid (1). ?? ? Echogenicity: Anechoic (0). ?? ? Shape: Not taller than wide (0). ?? ? Margins: Smooth (0). ?? ? Echogenic Foci: Peripheral calcifications (2).? ACR TI-RADS total points: 3 Previous: 2 ?? ? ACR TI-RADS category: 3 Previous: 2 ? Significant change in size (>/= 20% in 2 dimensions and minimal increase of 2 mm or 50% or greater increase in volume): ?? ? Change in features: ?? ? Change in ACR TI-RADS risk category: 2.? Location: Left inferior. ?? ? Size: 0.36 x 0.35 x 0.38 cm, volume 0.02 mL. ?? ? Previously: 0.40 x 0.30 x 0.40 cm, volume 0.03 mL. ?? ? Nodule characteristics: ?? ? Composition: Spongiform (0). ?? ? Echogenicity: Anechoic (0). ?? ? Shape: Not taller than wide (0). ?? ? Margins: Smooth (0). ?? ? Echogenic Foci: None (0).? ACR TI-RADS total points: 0 Previous: 3 ?? ? ACR TI-RADS category: 1 Previous: 3 ? Significant change in size (>/= 20% in 2 dimensions and minimal increase of 2 mm or 50% or greater increase in volume): ?? ? Change in features: ?? ? Change in ACR TI-RADS risk category: 3.? Location: Left mid. ?? ? Size: 0.42 x 0.43 x 0.46 cm, volume 0.04 mL. ?? ? Previously: 0.50 x 0.30 x 0.40 cm, volume 0.03 mL. ?? ? Nodule characteristics: ?? ? Composition: Mixed cystic and solid (1). ?? ? Echogenicity: Cannot be determined (1). ?? ? Shape: Not taller than wide (0). ?? ? Margins: Smooth (0). ?? ? Echogenic Foci: None (0).? ACR TI-RADS total points: 2 Previous: 3 ?? ? ACR TI-RADS category: 2 Previous: 3 ? Significant change in size (>/= 20% in 2 dimensions and minimal increase of 2 mm or 50% or greater increase in volume): ?? ? Change in features: ?? ? Change in ACR TI-RADS risk category: NODES: No lymphadenopathy is seen in the tissue surrounding the thyroid gland. Thyroid Uptake and Scan: 01/21/2021 FINDINGS: The uptake is 15.5% at 2 hours and 24.2% at 24 hours. Imaging of the gland shows mildly heterogeneous gland. No significant cold or hot defect. Labs: Laboratory Tests 11/09/22 11/09/22 09:21 09:21 Triglycerides 56 Cholesterol 171 LDL Cholesterol, C alc 101 HDL Cholesterol 59 25-OH Vitamin D To timothy 17.9 TSH 0.58 Free T4 0.97 No specifsx of hyperthyroidism PFSH Medical History (Updated 11/10/22 @ 15:00 by Oxana Beth DO) Obesity Multinodular thyroid Vitamin D deficiency Hypothyroidism Hyperthyroidism Migraines Migraine with aura Surgical History Hx of cholecystectomy Family History Father CVD (cardiovascular disease) Mother Diabetes mellitus Maternal Grandfather Thyroid disease Other Mental health disorder Social History Household Members: Spouse and Children Housing: Apartment Alcohol intake: current Alcohol intake frequency: holidays/special occasions only Patient Tobacco Use Status: Former Tobacco user Quit Date: 2017 Tobacco use type: Cigarette Years Smoked: 15 years e-Cigarette/Vaping Use: Currently Using Second Hand Smoke Exposure: No Current occupational status: employed Sexual orientation: Straight/Heterosexual Gender identity: Female Cognitive needs: No Hearing needs: No Vision needs: No Female Reproductive History Menstrual Age of Menarche: 14 Physical Exam Vital Signs: Last Vital Signs Pulse 81 12/14/23 14:26 BP 90/64 12/14/23 14:26 BMI result Body Mass Index 31.0 Const Other: Thyroid gland is normal size weighs about 15 g. There are no thyroid nodules palpated Assessment & Plan Assessment & Plan (1) Hyperthyroidism: Code(s): E05.90 - Thyrotoxicosis, unspecified without thyrotoxic crisis or storm Plan: This is a 38-year-old female with a history of hyperthyroidism due to Graves disease. She is currently remission off methimazole. She appears to be clinically and biochemically euthyroid At this point, patient returned to the care of her primary care provider and she returned back to endocrinology should the hyperthyroidism recur Coding Level of Care Code Est Pt Level 3 (49645) Diagnoses Hyperthyroidism E05.90
[2023-12-14 14:26] VITALS: BP 90/64; PULSE 81; BMI 31.0
== END 2023-12-14 14:36 | disposition home or self-care (01) ==
PROVIDERS: PCP Nurse Practitioner Family; Visit Provider Internal Medicine Endocrinology, Diabetes & Metabolism
DX: E05.90 Thyrotoxicosis, unspecified without thyrotoxic crisis or storm (principal)
CPT/HCPCS: 99213

== ENCOUNTER → 2023-12-14 14:20 | Outpatient (BNVA) | payer BC, SELFPAY | PROVIDERS: Visit Provider Internal Medicine Endocrinology, Diabetes & Metabolism ==

== ENCOUNTER 2024-04-10 09:55 | Outpatient (AMB) | payer BC, SELFPAY ==
--- NOTE | 2024-04-10 10:00 | A.OFFPC_ITS ---
Vital Signs 04/10/24 10:03 Height 5 ft 6 in Weight 216 lb BMI 34.9 BP 98/60 Blood Pressure Location Rt brachial Position Sitting Pulse 73 Pulse Source Pulse Oximeter Pulse Oximetry (%) 98 Oxygen Delivery Method Room Air Intake Visit Reasons: Medication review Intake Note: Patient here to discuss affect of citalopram. Allergies No Known Allergies Allergy (Unknown, Verified 04/10/24 10:20) Medication List - Last Reconciled 04/10/24 by JOSE Knott citalopram 10 mg PO DAILY Tobacco use date assessed: 04/10/24 Dental Screening Dental Screen Date: 04/10/24 Did you have a dental visit in the last 12 months?: Yes Did you have a dental problem in the last 6 months where you did not have access to dental care?: No Was dental information given to patient?: Patient has dentist HPI Medication review HPI Details Pt is here for a PE. Will order labs. 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 Pt reports that she has been gaining weight. Educated pt on proper diet and exercise. Encouraged pt to decrease alcohol use. Pt is currently taking citalopram 10mg. She reports increased anxiety, will increase to 20mg. Denies any SI and HI. DOes not want a therapist currently [facility] Medical History (Updated 04/10/24 @ 10:21 by JOSE Knott) Obesity Multinodular thyroid Vitamin D deficiency Hypothyroidism Hyperthyroidism Migraines Migraine with aura Surgical History Hx of cholecystectomy Family History Father CVD (cardiovascular disease) Mother Diabetes mellitus Maternal Grandfather Thyroid disease Other Mental health disorder Social History Household Members: Spouse and Children Housing: Apartment Alcohol intake: current Alcohol intake frequency: holidays/special occasions only Patient Tobacco Use Status: Former Tobacco user Quit Date: 2017 Tobacco use type: Cigarette Years Smoked: 15 years e-Cigarette/Vaping Use: Currently Using Second Hand Smoke Exposure: No Current occupational status: employed Sexual orientation: Straight/Heterosexual Gender identity: Female Cognitive needs: No Hearing needs: No Vision needs: No Female Reproductive History Menstrual Age of Menarche: 14 Questionnaire PHQ-9 Over the last 2 weeks, how often have you been bothered by any of the following problems? 1. Little interest or pleasure in doing things: several days 2. Feeling down, depressed, or hopeless: several days 3. Trouble falling or staying asleep, or sleeping too much: nearly every day 4. Feeling tired or having little energy: nearly every day 5. Poor appetite or overeating: nearly every day 6. Feeling bad about yourself - or that you are a failure or have let yourself or your family down: several days 7. Trouble concentrating on things, such as reading the newspaper or watching television: several days 8. Moving or speaking so slowly that other people could have noticed. Or the opposite - being so fidgety or restless that you have been moving around a lot more than usual: several days 9. Thoughts that you would be better off or of hurting yourself in some way: not at all Total score: 14 Depression Screening Interpretation: Positive (increased citalopram, denies any SI or HI, declines therapy) Depression Screening Follow-up: Existing condition Depression Screening Done: Yes 16973 - PHQ-9 Billing: Yes Source: Developed by Drs. Baldev Gagnon, Rosa Estes, Rehan Bynum and colleagues, with an educational casandra from [employer]. Thrive Questionnaire Date Thrive assessed: 04/10/24 I am a: Patient What is your living situation today?: I have a steady place to live Within the past 12 months, did the food you bought not last and you didn't have the money to get more?: Never true Within the past 12 months, did you worry whether your food would run out before you got money to buy more?: Never true Do you have trouble paying for medicines?: No Do you have trouble getting transportation to medical appointments?: No Do you have trouble paying your heating and electricity bill?: No Do you have trouble taking care of your child, family member or friend?: No Do you have trouble with day-to-day activities such as bathing, preparing meals, shopping, managing finances, etc.?: No Are you currently unemployed and looking for a job?: No Are you interested in more education?: No Currently or been in a relationship where the following occur: I choose not to answer this question THRIVE Score: 0 AUDIT C Alcohol Use Questionnaire (AUDIT-C) 1. How often do you have a drink containing alcohol?: 2-4 times a month 2. How many drinks containing alcohol do you have on a typical day when you are drinking?: 1 or 2 3. How often do you have six or more drinks on one occasion?: Never Total Score: 2 Score Reviewed/Action Taken: No TANIA-7 AMB Questionnaire TANIA-7 Date TANIA - 7 assessed: 10/06/22 Feeling nervous, anxious, or on edge: 3 = Nearly every day Not being able to stop or control worryin = More than half the days Worrying too much about different things: 2 = More than half the days Trouble relaxin = Nearly every day Being so restless that it is hard to sit still: 2 = More than half the days Becoming easily annoyed or irritable: 1 = Several days Feeling afraid as if something awful might happen: 0 = Not at all Total TANIA-7 score (0-4 normal; 5-9 mild; 10-14 moderate; 15-21 severe): 13 Source: Developed by Drs. Baldev Gagnon, Rosa Estes, Rehan Bynum and colleagues, with an educational casandra from [employer]. Review of Systems Const Denies chills and Denies fever(s) Eyes Denies blurry vision ENT Denies vertigo, Denies dizziness and Denies sore throat Card Denies chest pain at rest, Denies chest pain with activity, Denies diaphoresis, Denies dyspnea and Denies dyspnea on exertion Resp Denies cough, Denies dyspnea, Denies dyspnea on exertion and Denies wheezing GI Denies abdominal pain, Denies melena, Denies hematochezia, Denies constipation, Denies diarrhea and Denies loose stools Denies hematuria Musc Denies numbness and Denies tingling Skin/Breast Denies lesions Neuro Denies vertigo, Denies dizziness, Denies numbness and Denies tingling Psych Reports anxiety, Denies depression, Denies homicidal ideation, Denies suicidal ideation and Denies other (substance abuse) Aller/Immun Denies wheezing Physical exam (Primary Care) Vital Signs: Last Vital Signs Pulse 73 04/10/24 10:03 BP 98/60 04/10/24 10:03 Pulse Ox 98 04/10/24 10:03 Oxygen Delivery Method Room Air 04/10/24 10:03 BMI result Body Mass Index 34.9 Tobacco/Smoking Status: Tobacco use Status Tobacco use date assessed 04/10/24 04/10/24 10:04 Patient Tobacco Use Status Former Tobacco user 04/10/24 10:02 Tobacco use type Cigarette 04/10/24 10:02 e-Cigarette/Vaping Use Currently Using 04/10/24 10:02 PHQ-9: PHQ-9 Score PHQ-9: Total score 14 04/10/24 10:23 Depression Screening Interpretation: Positive (increased citalopram, denies any SI or HI, declines therapy) Depression Screening Follow-up: Existing condition Thrive Assessment: Date of Thrive Assessment Date Thrive assessed 04/10/24 04/10/24 10:23 Currently or been in a relationship where the following occur: I choose not to answer this question Const General: cooperative Nutritional Appearance: obese Orientation/consciousness: patient oriented x3 HENMT Head: Yes normal to inspection, Yes normocephalic and Yes atraumatic Ears: TM's normal bilaterally Eyes General: appearance normal, both eyes and all related structures Alignment and Position: alignment normal and position normal Neck Neck: Yes normal visual inspection and Yes no lymphadenopathy Thyroid: Thyroid normal Resp Effort & Inspection: normal respiratory effort Auscultation: clear to auscultation bilaterally Cardio Rate: regular rate Rhythm: regular rhythm Heart sounds: S1 normal heart sound present, S2 normal heart sound present and no murmurs GI Palpation (GI): Soft to palpation and nontender Auscultation: normal bowel sounds Skin Rashes: no rashes Neuro General: patient oriented x3 Romberg Test: Negative Psych Appearance: grossly normal Mental Status: mental status grossly normal Speech and movement: Normal speech and movement present Affect: normal affect Attitude: cooperative Thought process: Normal thought process present Thought content: Normal thought content present Insight: Good insight present (Psych) Judgement: Good judgement present (Psych) Assessment and Plan Assessment & Plan (1) Physical exam: Code(s): Z00.00 - Encounter for general adult medical examination without abnormal findings Plan: Labs ordered (2) Obesity: Code(s): E66.9 - Obesity, unspecified Plan: Labs ordered, work on diet and exercise, decrease alcohol use (3) Anxiety: Code(s): F41.9 - Anxiety disorder, unspecified Plan: Increasing citalopram from 10mg to 20mg (4) Encounter for routine adult physical exam with abnormal findings: Code(s): Z00.01 - Encounter for general adult medical examination with abnormal findings Plan: Labs ordered Plan The patient agreed to the use of a medical assistant prn for this encounter. Scribed for JAKE Wilkins-BC by Lindsey Briscoe medical assistant prn, on 04/10/2024 at 10:15 EST. Orders: Orders Complete Blood Count Auto Diff Today E66.9 - Obesity, unspecified, Z00.00 - Encounter for general adult medical examination without abnormal findings TSH reflex Free T4 Today E66.9 - Obesity, unspecified, Z00.00 - Encounter for general adult medical examination without abnormal findings UA CC w/rflx Micro + Cult Today E66.9 - Obesity, unspecified, Z00.00 - Encounter for general adult medical examination without abnormal findings Comprehensive Gibson. Panel Fast Today E66.9 - Obesity, unspecified, Z00.00 - Encounter for general adult medical examination without abnormal findings Lipid Panel Today E66.9 - Obesity, unspecified, Z00.00 - Encounter for general adult medical examination without abnormal findings Medications: Changed From citalopram 10 mg PO DAILY 90 tabs 1RF To citalopram 20 mg PO DAILY 90 tabs 1RF Coding Level of Care Code Est Pt Level 3 (83145) Diagnoses Physical exam Z00.00 Obesity E66.9 Anxiety F41.9 Encounter for routine adult physical exam with abnormal findings Z00.01
[2024-04-10 10:03] VITALS: BP 98/60; PULSE 73; O2SAT 98; BMI 34.9
== END 2024-04-10 10:37 | disposition home or self-care (01) ==
PROVIDERS: PCP Nurse Practitioner Family; Visit Provider Nurse Practitioner Family
DX: Z00.00 Encounter for general adult medical examination without abnormal findings (principal); E66.9 Obesity, unspecified; F41.9 Anxiety disorder, unspecified; Z68.34 Body mass index [BMI] 34.0-34.9, adult
CPT/HCPCS: 99395